=== PATIENT | male | born 1970 | race Two or more races ===

== ENCOUNTER → 2022-06-30 | Emergency (ER) | payer OTHER ==
[~2022-06-30] VITALS: Ht 170.2 cm; Wt 90.7 kg
[~2022-06-30] MED LIST: COZAAR25 MG PO; DOLOGEN 325-11 EACH PO; ORPH100T PO; XANAX0.25 MG
== END | disposition designated cancer center or children's hospital (05) ==
LOC: ER 16:24
DX: S71.101A Unspecified open wound, right thigh, initial encounter (principal); W33.01XA Accidental discharge of shotgun, initial encounter; Y93.89 Activity, other specified; Y92.89 Other specified places as the place of occurrence of the external cause; R58 Hemorrhage, not elsewhere classified; R60.0 Localized edema; Z88.0 Allergy status to penicillin; Z88.6 Allergy status to analgesic agent